=== PATIENT | male | born 2000 | race Caucasian/White ===

== ENCOUNTER 2020-03-09 15:42 | Emergency (ER) | payer OTHER, SELFPAY ==
[2020-03-09 15:43] VITALS: BP 156/99; PULSE 112; RESP 20; TEMP 37; O2SAT 99; BMI 24.1
--- NOTE | 2020-03-09 15:49 | XR_ITS ---
PROCEDURE: XR FINGER LT MIN 2V CLINICAL INDICATION: thumb injury assess post surgical COMPARISON: No exams were available for comparison FINDINGS: There is a nondisplaced fracture involving the proximal aspect of the distal phalanx of the thumb. There is mild anterior angulation of the distal fracture fragment. Along the dorsal aspect of the fracture there is a thin linear bony density which may be related to a bony spicule. At the distal aspect of the thumb there is a pin. The fracture line is proximal to the deepest portion of the encarnacion suggesting that the pin may have pulled out some. There are no old studies here for comparison. IMPRESSION: Nondisplaced fracture of the proximal aspect of the distal phalanx of the thumb. A pin is in place but is distal to the fracture line and may have withdrawn. There is mild anterior angulation of the distal fracture fragment with the bony spicule noted posteriorly. Correlation with old films needed. Dictated by: Feng Hughes MD 03/09/2020 16:21 Feng Hughes MD in [place] 03/09/2020 16:21
--- NOTE | 2020-03-09 16:10 | [facility].EDGENADL ---
ED Disposition Clinical Impression: H/O thumb surgery, Thumb pain Disposition: Home, Self-Care Condition on Discharge: Good Instructions: DI for Laceration Repair Referrals: PCP,No [Primary Care Provider] - - Critical Care Critical Care Time: No Attestation: On , the high probability of a clinically significant, sudden or life threatening deterioration of the following system(s) required my full and direct attention, intervention and personal management. The time I documented below is in addition to time spent performing reported procedures but includes the following listed in this critical care notation. Medical Decision Making - Medical Records Medical records reviewed: Yes: I reviewed the patient's medical records. - Abdiel Inquiry Pt receiving controlled substance: No Vital Signs: 03/09/20 15:43 Temperature 98.6 F Temperature Source Oral Pulse Rate [Left Radial] 112 H Respiratory Rate 20 Blood Pressure [Right Arm] 156/99 H Blood Pressure Mean [Right Arm] 118 Blood Pressure Source [Right Arm] Automatic Cuff Blood Pressure Position [Right Arm] Sitting 02 Sat by Pulse Oximetry 99 Oxygen Delivery Method Room Air Medical Decision Narrative: 19-year-old male with history of crush injury and postsurgical repair to distal thumb presents with possible movement of surgical hardware. X-ray shows possible anterior displacement of the pin. Surrounding the area there is no concern for cellulitis abscess or marked displacement as the pain is still in the bone. I think this needs to be evaluated by hand surgeon and have recommended that he follow-up in the next few days with the surgeon that did the surgery. Symptomatic control recommended as well. General Adult HPI - General Chief complaint: Wound/Laceration Stated complaint: thumb pain Time Seen by Provider: 03/09/20 15:45 Mode of Arrival: Ambulatory Limitations: No Limitations Description of Symptoms (Recalled from ER Triage Doc. by RN): One month ago pt had a crush injury to his right thumb, pt states that he was cleaning and seen the nail that is in place around the bandage move and he was concerned with this. - History of Present Illness HPI narrative: 19-year-old male with history of recent crush injury to left thumb for which he had surgery at a hospital in the [facility] presents with pain after accidentally hitting his thumb and he thinks that the nail has moved. He denies fever chills redness or swelling to the thumb no new injuries otherwise. Severity: moderate Quality: dull Consistency: constant - Related Data Allergies Allergy/AdvReac Type Severity Reaction Status Date / Time No Known Allergies Allergy Verified 03/09/20 15:57 [facility] History - Hepatitis A Screen Drug use history?: No High risk sexual behaviors?: No History of sexually transmitted infection?: No Currently employed?: No Childcare worker?: No Do you have indoor plumbing?: Yes Do you have electricity?: Yes Attestation statement:: This patient has been screened for Hepatitis A risk factors. ROS Obtained: Yes All systems reviewed & no additional complaints - Constitutional Constitutional: Denies chills, Denies fever(s) - Eyes Eyes: Denies blurry vision - ENT Ears, Nose, Mouth, and Throat: Denies dizziness - Cardiovascular Cardiovascular: Denies chest pain - Respiratory Respiratory: Denies shortness of breath - Gastrointestinal Gastrointestingal: Denies: abdominal pain, nausea, vomiting - Musculoskeletal Musculoskeletal: Denies joint stiffness - Integumentary/Breasts Skin/Breast: Denies rash - Neurologic Neurologic: Denies dizziness, Denies headache(s), Denies syncope, Denies tingling Physical Exam - General General appearance: alert, in no apparent distress - Head Head exam: atraumatic - Eye Eye exam: Present: PERRL - ENT ENT exam: Present: normal oropharynx - Neck Neck exam: Absent: tenderness - Chest Chest inspection: Prese
[2020-03-09 18:08] VITALS: BP 140/95; PULSE 115; RESP 20; TEMP 36.9; O2SAT 100
== END 2020-03-09 18:12 | disposition home or self-care (01) ==
PROVIDERS: Emergency Provider Emergency Medicine
DX: M79.641 Pain in right hand (principal); S67.0 Crushing injury of thumb; S62.524 Nondisplaced fracture of distal phalanx of right thumb
CPT/HCPCS: 73140; 99282